=== PATIENT | female | born 1990 | race Two or more races ===

== ENCOUNTER 2017-11-29 14:52 | Emergency (ER) | payer BC ==
[~2017-11-29] VITALS: Ht 162.6 cm; Wt 54.4 kg
[2017-11-29 15:21] VITALS: BP 98/54
[2017-11-29] MEDS ORDERED: Norco 5mg/325mg tab ORAL ONE (15:30)
[2017-11-29] MEDS ORDERED: Hydrogen Peroxide 473ml Bottle TOPIC ONE (15:45)
--- NOTE | 2017-11-29 15:49 | Emergency Room Report ---
History of Present Illness General Chief Complaint: Laceration Source: Patient Present Illness HPI 27 YO Female presents to the ED c/O right knee laceration sustained early this am. pt. slipped on gravel and sustained injury. pt. rates pain as 6/10 in severity. She reports being on blood thinning medications, however she did take 600mg IBU ROCK CRUSHER. Denies fevers or chills. Allergies: Uncoded Allergies: SULFA (Allergy, Unknown, 11/29/17) Patient History Past Medical History: see triage record Past Surgical History: none Pertinent Family History: none Now: No Immunizations: UTD - pt. states she receved tetanus in the last few years. Reviewed Nursing Documentation: PMH: Agreed; PSxH: Agreed Nursing Documentation-PMH Past Medical History: No Stated History Review of Systems All Other Systems: negative except mentioned in HPI Physical Exam Vital Signs Date Time Temp Pulse Resp B/P (MAP) Pulse Ox O2 Delivery O2 Flow Rate FiO2 11/29/17 15:03 98.1 79 15 98/54 100 Room Air 98.1 Sp02 EP Interpretation: reviewed, normal General Appearance: alert, GCS 15, non-toxic, mild distress Head: normocephalic, atraumatic ENT: hearing grossly normal, normal voice Neck: full range of motion Respiratory: lungs clear, normal breath sounds, speaking full sentences Cardiovascular #1: regular rate, rhythm Musculoskeletal: back normal, gait/station normal - compensatory, normal range of motion, tender - anterior knee/adrian ttp Neurologic: alert, oriented x3, responsive, motor strength/tone normal, sensory intact, speech normal, grossly normal Psychiatric: judgement/insight normal Skin: normal color, no rash, warm/dry, well hydrated, laceration - 4cm stellate puncture/laceration that has surrounding abrasion on the proximal right adrian. Procedures Laceration/Wound Repair Laceration/Wound Repair : Consent: Verbal Wound Location: lower extremity - right proximal adrian Wound's Depth, Shape: irregular, stellate Wound Length (cm): 4 Wound Explored: contaminated - gravel Irrigated w/ Saline (ccs): 1000 Anesthesia: Lidocaine w/ Epi Volume Anesthetic (ccs): 3 Wound Debrided: minimal Wound Repaired With: sutures Suture Size/Type: 4:0, proline Number of Sutures: 4 Layer Closure?: No Sterile Dressing Applied?: Yes Splint Applied?: Yes Type of Splint Applied: ezio wrap Sling Applied?: No Patient Tolerated: Well Complications: None Medical Decision Making PA Attestation Dr. cabrales is my supervising Physician whom patient management has been discussed with. Diagnostic Impression: Primary Impression: Laceration ER Course 27 YO Female presents to the ED c/O right knee laceration sustained early this am. pt. slipped on gravel and sustained injury. pt. rates pain as 6/10 in severity. Denies being on blood thinning medications, however she did take 600mg IBU ROCK CRUSHER. Denies fevers or chills. Denies Denies numbness tingling or loss of sensation or gross motor movements of the extremities, incontinence of bowel or bladder. Denies CP, Palpitations, LOC, AMS, dizziness, Changes in Vision, weakness or a sudden severe headache. Ddx considered but are not limited to laceration, tendon injury, cellulitis, amputation Vital signs: are WNL, pt. is afebrile H&PE are most consistent with: 4cm stellate puncture/laceration that has surrounding abrasion on the proximal right adrian. ORDERS: none required at this time, the diagnosis is clinical ED INTERVENTIONS: -Tetanus vaccine was administered as pt. vaccination status was unknown. - The wound was copiously irrigated with normal saline, and explored for foreign body for which no FB was found. - pt. is anesthetized with 1%lidocaine w. epi. - The wound was approximated and closed using 2 vertical mattress, and 2 interrupted 4.0Prolene sutures. -Bacitracin and sterile dressing is applied. -Ezio wrap applied by technical marketing engineer. Pt. remains neurovascularly intact. Discussed with patient: That we make every effort to approximate the laceration as best as we can so that scarring will be as cosmetically pleasing as possible with our limited cosmetic skill set in the Emergency dept. Regardless of our best efforts there will be scarring after laceration repair. The extent of scarring is unknown at this time. DISCHARGE: At this time pt. is stable for d/c to home. Will provide printed patient care instructions, and any necessary prescriptions. Care plan and follow up instructions have been discussed with the patient prior to discharge. Other X-Ray Diagnostic Results Other X-Ray Diagnostic Results : X-Ray ordered: Right Knee # of Views/Limited Vs Complete: 2 View Indication: Pain EP Interpretation: Yes MAIDA Xray: Interpretation reviewed, by supervising MD, and agrees with findings. Interpretation: no dislocation, no soft tissue swelling, no fractures, other Impression: No acute disease Electronically Signed by: Codie Box PA-C Last Vital Signs Date Time Temp Pulse Resp B/P (MAP) Pulse Ox O2 Delivery O2 Flow Rate FiO2 11/29/17 15:25 98.1 11/29/17 15:21 87 15 98/54 100 Room Air Disposition: HOME, SELF-CARE Condition: Stable Scripts Bacitracin/Polymyxin B Sulfate (BACITRACIN-POLYMYXIN OINTMENT) 28.35 Gm Oint...g. 1 APPLIC TP BID, #28.3 GM Prov: Codie Box 11/29/17 Amoxicillin/Potassium Clav 875-125* (AUGMENTIN 875-125 TABLET*) 1 Each Tablet 1 TAB ORAL TWICE A DAY for 7 Days, #14 TAB Prov: Codie Box 11/29/17 Ibuprofen* (MOTRIN*) 600 Mg Tablet 600 MG ORAL THREE TIMES A DAY, #20 TAB 0 Refills Prov: Codie Box 11/29/17 Hydrocodone Bit/Acetaminophen 5-325* (NORCO 5-325*) 1 Each Tablet 1 TAB ORAL Q6H, #6 TAB 0 Refills Prov: Codie Box 11/29/17 Referrals: NOT CHOSEN IPA/,REFERRING (PCP) Patient Instructions: Laceration Care, Adult, Stitches, Amanda, or Adhesive Wound Closure, [id number] Additional Instructions: Take medications as directed. [place] are to be removed in 7-10 days. Follow up with a Primary Care Provider in 3-5 days, even if your symptoms have resolved. --Please review list of primary care clinics, if you do not already have a primary care provider Return sooner to ED if new symptoms occur, or current symptoms become worse. Do not drink alcohol, drive, or operate heavy machinery while taking [place] as this may cause drowsiness. - Please note that this Emergency Department Report was dictated using [employer] silk screen printer technology software, occasionally this can lead to erroneous entry secondary to interpretation by the dictation equipment. Codie Box Nov 29, 2017 15:49
[2017-11-29] MEDS ORDERED: NORCO 5-325 TA1 EACH ORAL (16:13)
[2017-11-29] MEDS ORDERED: AUGMENTIN 875-1 EAC1 ORAL (16:13)
[2017-11-29] MEDS ORDERED: BACITRACIN-P28.35 GM TP (16:13)
[2017-11-29] MEDS ORDERED: IBUPROFEN600 MG ORAL (16:13)
[2017-11-29 17:16] VITALS: BP 100/58
[2017-11-29 17:17] VITALS: BP 100/58
--- NOTE | 2017-11-30 09:02 | Diagnostic Imaging Report ---
Indication: Pain, status post fall Technique: 3 views of the right knee Comparison: None Findings: No acute fractures. No dislocations. No suprapatellar effusion. The joint spaces are preserved Impression:Negative
== END 2017-11-29 17:17 | disposition home or self-care (01) ==
LOC: EMR 15:30
DX: S81.011A Laceration without foreign body, right knee, initial encounter (principal); W01.0XXA Fall on same level from slipping, tripping and stumbling without subsequent striking against object, initial encounter; Y92.9 Unspecified place or not applicable; Z88.2 Allergy status to sulfonamides
CPT/HCPCS: 99283

== ENCOUNTER 2017-12-07 17:56 | Emergency (ER) | payer BC ==
[~2017-12-07] VITALS: Ht 162.6 cm; Wt 53.5 kg
[~2017-12-07 17:56] MED LIST: AUGMENTIN 875-1 EAC1 ORAL; BACITRACIN-P28.35 GM TP; IBUPROFEN600 MG ORAL; NORCO 5-325 TA1 EACH ORAL
[2017-12-07] MEDS ORDERED: Bacitracin Oint UD TOPIC ONE (18:30)
--- NOTE | 2017-12-07 18:33 | Emergency Room Report ---
History of Present Illness General Chief Complaint: Wound Recheck/Suture Removal Source: Patient Present Illness HPI 27-year-old female presents emergency department for suture removal of sutures that were placed 8 days ago in the anterior right knee status post slip and fall which resulted in knee laceration, abrasion/avulsion. Patient denies pain at this time she denies erythema, tenderness, discharge or bleeding. Patient denies fevers or chills. Patient is up-to-date with vaccinations. Allergies: Coded Allergies: SULFA (SULFONAMIDE ANTIBIOTICS) (Verified Allergy, Unknown, 12/07/17) Patient History Past Medical History: see triage record Past Surgical History: none Pertinent Family History: none Last Menstrual Period: 11/16/17 Now: No Reviewed Nursing Documentation: PMH: Agreed; PSxH: Agreed Nursing Documentation-PMH Past Medical History: No Stated History Review of Systems All Other Systems: negative except mentioned in HPI Physical Exam Vital Signs Date Time Temp Pulse Resp B/P (MAP) Pulse Ox O2 Delivery O2 Flow Rate FiO2 12/07/17 18:07 98.9 105 16 116/75 98 Room Air 99.0 Sp02 EP Interpretation: reviewed, normal General Appearance: no apparent distress, alert, GCS 15, non-toxic Head: normocephalic, atraumatic ENT: hearing grossly normal, normal voice Neck: full range of motion Respiratory: lungs clear, normal breath sounds, speaking full sentences Cardiovascular #1: regular rate, rhythm Musculoskeletal: back normal, gait/station normal, normal range of motion, non- tender Neurologic: alert, oriented x3, responsive, motor strength/tone normal, sensory intact, speech normal, grossly normal Psychiatric: judgement/insight normal Skin: normal color, no rash, warm/dry, well hydrated, wd healing/no infection noted - healed laceration of the Right knee, with abrasion that is healing. Medical Decision Making PA Attestation Dr. Merchant is my supervising Physician whom patient management has been discussed with. Diagnostic Impression: Primary Impression: Encounter for removal of sutures ER Course 27-year-old female presents emergency department for suture removal of sutures that were placed 8 days ago in the anterior right knee status post slip and fall which resulted in knee laceration, abrasion/avulsion. Patient denies pain at this time she denies erythema, tenderness, discharge or bleeding. Patient denies fevers or chills. Patient is up-to-date with vaccinations. Ddx considered but are not limited to laceration, tendon injury, cellulitis, dehiscence. Vital signs: are WNL, pt. is afebrile H&PE are most consistent with: healed laceration of the Right knee, with abrasion that is healing. ORDERS: none required at this time, the diagnosis is clinical ED INTERVENTIONS: - 4 Sutures removed. -Bacitracin, sterile dressing were applied along with Ezio wrap. Ezio wrap applied to the right knee by nanotechnician. Pt. remains neurovascularly intact. DISCHARGE: At this time pt. is stable for d/c to home. Will provide printed patient care instructions, and any necessary prescriptions. Care plan and follow up instructions have been discussed with the patient prior to discharge. Last Vital Signs Date Time Temp Pulse Resp B/P (MAP) Pulse Ox O2 Delivery O2 Flow Rate FiO2 12/07/17 18:07 98.9 105 16 116/75 98 Room Air 99.0 Disposition: HOME, SELF-CARE Condition: Stable Scripts Allantoin/Onion/Peg/Water (MEDERMA GEL) 20 Gm Gel..gram. 20 APPL TP TID, #20 GM 5 Refills Prov: Codie Box 12/07/17 Referrals: NON PHYSICIAN (PCP) Patient Instructions: Suture Removal, Care After Additional Instructions: Take medications as directed. Follow up with a Primary Care Provider in 3-5 days, even if your symptoms have resolved. Return sooner to ED if new symptoms occur, or current symptoms become worse. - Please note that this Emergency Department Report was dictated using [employer] Sciences[employer]el truck mechanic technology software, occasionally this can lead to erroneous entry secondary to interpretation by the dictation equipment. Codie Box Dec 07, 2017 18:33
[2017-12-07] MEDS ORDERED: MEDERMA GEL20 GM TP (18:35)
[2017-12-07 19:10] VITALS: BP 114/72
[2017-12-07 19:39] VITALS: BP 112/68
== END 2017-12-07 19:41 | disposition home or self-care (01) ==
LOC: EMR 18:13
DX: Z48.02 Encounter for removal of sutures (principal); Z48.817 Encounter for surgical aftercare following surgery on the skin and subcutaneous tissue
CPT/HCPCS: 99283